=== PATIENT | male | born 1950 | race Caucasian/White ===

== ENCOUNTER 2023-08-15 09:56 | Emergency (ER) | payer OTHER, SELFPAY ==
[2023-08-15 10:04] VITALS: BP 180/94; PULSE 61; RESP 16; TEMP 36.4; O2SAT 99; BMI 22.2
[2023-08-15 10:07] VITALS: BP 180/94
[2023-08-15 10:08] VITALS: PULSE 67; RESP 13; O2SAT 100
--- NOTE | 2023-08-15 10:16 | ED.GENADULT ---
HPI - General Adult General Chief complaint: Urogenital-Male Stated complaint: Urinary retention: Time Seen by Provider: 08/15/23 09:57 Source: patient Mode of arrival: EMS History of Present Illness HPI narrative: 73-year-old male. Has had issues with urinary hesitancy and frequency in the past however last evening he stated that things got significantly worse. He states that he had the urge to have a urination but has been unable to do so. Things have worsened overnight and then this morning got to the point where he could not urinate at all. He is having some vomiting and quite a bit of lower abdominal discomfort. Related Data Previous Rx's Medication Instructions Recorded tamsulosin 0.4 mg capsule (Flomax) 0.4 mg PO DAILY #30 caps 08/15/23 Review of Systems Gastrointestinal Gastrointestinal: Reports system reviewed and no additional complaints, except as documented Genitourinary Genitourinary: Reports system reviewed and no additional complaints, except as documented Integumentary/Breasts Skin/Breast: Reports system reviewed and no additional complaints, except as documented Hematologic/Lymphatic On Anticoagulants: No Exam Initial Vital Signs Initial Vital Signs: Vital Signs Temperature 97.6 F 08/15/23 10:04 Pulse Rate 61 08/15/23 10:04 Respiratory Rate 16 08/15/23 10:04 Blood Pressure 180/94 H 08/15/23 10:04 Pulse Oximetry 99 08/15/23 10:04 Oxygen Delivery Method Room Air 08/15/23 10:04 Const General: cooperative and No ill appearing HENVA Head: normal to inspection and normocephalic GI Inspection: non-distended Palpation: soft Other: Jacobo catheter in place. Normal external genitalia Skin General: no rashes or lesions noted Neuro General: patient alert, patient awake and moves all extremities Extrem General: capillary refill normal Course Orders Ordered: ED Orders 08/15/23 09:58 Urinalysis and Microscopic Stat Urine Culture Stat Discontinued Medications Lidocaine HCl (Lidocaine 2% (Glydo) 6 Ml Gel) 6 ml TOP NOW ONE Stop: 08/15/23 09:58 Vital Signs Vital signs: Vital Signs - 8 hr 08/15/23 10:04 08/15/23 10:07 08/15/23 10:08 Temperature 97.6 F Pulse Rate 61 67 Respiratory Rate 16 13 Blood Pressure 180/94 H 180/94 H Pulse Oximetry 99 100 Oxygen Delivery Method Room Air Room Air 08/15/23 10:30 Temperature Pulse Rate 55 L Respiratory Rate 19 Blood Pressure Pulse Oximetry Oxygen Delivery Method Medical Decision Making Lab Data Lab results reviewed: Yes I reviewed the patient's lab results. Labs: Lab Results 08/15/23 Range/Units 09:58 Urine Color Yellow Urine Appearance Clear Urine pH 5.5 (4.5-8.0) Ur Specific [place] 1.015 (1.000-1.035) Urine Protein Negative (Negative) Urine Glucose (UA) Negative (Negative) g/dL Urine Ketones Negative (NEGATIVE) Urine Occult Blood 3+ H (Negative) Urine Nitrate Negative (Negative) Urine Bilirubin Negative (NEGATIVE) Urine Urobilinogen 0.2 (0.2) E.U./dL Ur Leukocyte Esterase Negative (NEGATIVE) Urine RBC 10-30/hpf H (0-5/HPF) Urine WBC 1-5/hpf (0-5/HPF) Ur Squamous Epith Cells None seen (0-5/HPF) Urine Bacteria None seen (None) MDM Narrative Medical decision making narrative: Jacobo catheter was placed with greater than 1 L of urine resulting. Patient feels much better. Blood pressure improved. No urinary tract infection on urinalysis. Will discharge patient home with a prescription for Flomax and will leave the catheter in place when he returns home he will follow-up with his urologist. Discharge Plan Departure Patient Disposition: Home Clinical Impression: Acute retention of urine Instructions: How to Care for Your Jacobo Catheter -- Male, DI for Urinary Retention in Men Activity Restrictions/Additional Instructions: A prescription for Flomax was sent to [facility] which is here in the hospital. Please take it daily as directed. When you return home your going to need follow-up with a urologist. Return to the emergency department for new symptoms. Prescriptions: New tamsulosin [Flomax] 0.4 mg capsule 0.4 mg PO DAILY Qty: 30 0RF Referrals: John Benson MD [Physician] - Stand Alone Forms: Patient Portal/API
[2023-08-15 10:21] LABS: Appearance Urine UA CLEAR; Bilirubin Urine UA NEGATIVE (NEGATIVE); Color Urine UA YELLOW; Glucose Urine UA NEGATIVE (Negative); Ketones Urine UA NEGATIVE (NEGATIVE); Leukocyte Esterase Urine UA NEGATIVE (NEGATIVE); Nitrite Urine UA NEGATIVE (Negative); Occult Blood Urine UA 3+ (Negative); Protein Urine UA NEGATIVE (Negative); Specific Gravity Urine UA 1.015 (1.000-1.035); Urobilinogen Urine UA 0.2 E.U./dL (0.2); pH Urine UA 5.5 (4.5-8.0)
[2023-08-15 10:25] LABS: Bacteria Urine None Seen; RBC Urine 10-30/HPF (0-5/HPF); WBC Urine 1-5/HPF (0-5/HPF)
[2023-08-15 10:26] LABS: Squamous Epithelial Cell Urine None Seen (0-5/HPF)
[2023-08-15 10:30] VITALS: PULSE 55; RESP 19
[2023-08-15 10:31] VITALS: BP 141/71; PULSE 51; RESP 20; O2SAT 98
--- NOTE | 2023-08-15 10:33 | PC.NURSE ---
O2 saturation reading 77% with good pleth. Patient was resting but easily arousable, sat up in bed and scooted himself up to the head of bed. Patient denies SOB. Lung sounds clear. Repositioned pulse oximeter to left hand, o2 satting 99%. Pt deneis DWAIN or oxygen use at home.
[2023-08-15 11:00] VITALS: BP 127/78; PULSE 53; RESP 20; O2SAT 98
== END 2023-08-15 11:27 | disposition home or self-care (01) ==
PROVIDERS: Emergency Provider Emergency Medicine
DX: R33.8 Other retention of urine (principal)
CPT/HCPCS: 81001; 87086; 99283